=== PATIENT | female | born 1995 | race Caucasian/White ===

== ENCOUNTER 2017-11-24 16:05 | Outpatient (CLI) | payer OTHER | END 2017-11-24 19:46 | disposition home or self-care (01) | LOC: OBT 16:05 → L-D 16:06 → OBT 19:46 | DX: O62.9 Abnormality of forces of labor, unspecified (principal); Z3A.38 38 weeks gestation of pregnancy | CPT/HCPCS: Z7500 ==

== ENCOUNTER 2017-11-28 17:55 | Inpatient (IN) | payer OTHER ==
[2017-11-28] MEDS ORDERED: LACTATED RINGER'S 1,000 ML IV (20:58)
[2017-11-28] MEDS ORDERED: BUTORPHANOL 2 MG INJ IV (21:00)
[2017-11-28] MEDS ORDERED: CARBOPROST 250 MCG INJ IM (21:00)
[2017-11-28] MEDS ORDERED: LIDOCAINE 1% (MPF) 30 ML INJ INJ (21:00)
[2017-11-28] MEDS ORDERED: MISOPROSTOL 200 MCG TAB PR (21:00)
[2017-11-28] MEDS ORDERED: OXYTOCIN 30 UNITS/LR 500 ML IV (21:00)
[2017-11-28] MEDS ORDERED: IBUPROFEN 600 MG TAB PO (21:00)
[2017-11-28] MEDS ORDERED: METHYLERGONOVINE 0.2 MG INJ IM (21:00)
[2017-11-28] MEDS: LACTATED RINGER'S 1,000 ML IV (22:10)
[2017-11-29] LABS: ADD MAN DIFF? NO
[2017-11-29 00:02] LABS: ABNORMAL IP MESSAGE 1; BASOPHILS % 0.3 % (0.0-2.0); EOSINOPHILS # 0.1 10^3/ul (0.0-0.5); EOSINOPHILS % 0.8 % (0.0-7.0); HEMOGLOBIN 9.6 g/dl (12.0-16.0); LYMPHOCYTES # 1.9 10^3/ul (0.8-2.9); LYMPHOCYTES % 18.9 % (15.0-51.0); MEAN CORPUSCULAR HEMOGLOBIN 22.4 pg (29.0-33.0); MEAN CORPUSCULAR VOLUME 72.4 fl (82.0-101.0); MEAN PLATELET VOLUME 11.6 fl (7.4-10.4); MONOCYTE # 0.7 10^3/ul (0.3-0.9); MONOCYTES % 6.5 % (0.0-11.0); NEUTROPHIL # 7.5 10^3/ul (1.6-7.5); NEUTROPHILS % 73.1 % (39.0-77.0); PLATELET COUNT 250 10^3/UL (140-415); RED BLOOD COUNT 4.28 10^6/ul (4.20-5.40); RED CELL DISTRIBUTION WIDTH 17.9 % (11.5-14.5)
[2017-11-29 00:02] LABS: WHITE BLOOD COUNT 10.2 10^3/ul (4.8-10.8)
[2017-11-29 00:06] LABS: POSITIVE DIFF @See below
[2017-11-29 00:18] LABS: INR 0.99; PROTIME 13.2 Sec (11.9-14.9)
[2017-11-29 00:19] LABS: PARTIAL THROMBOPLASTIN TIME 27.9 Sec (25.0-35.0)
[2017-11-29 00:52] LABS: HEPATITIS B SURFACE ANTIGEN NEGATIVE (NEGATIVE)
[2017-11-29] MEDS: LACTATED RINGER'S 1,000 ML IV ×2 (06:26→17:44)
[2017-11-29 16:21] LABS: RAPID PLASMA REAGIN NONREACTIVE (NR)
[2017-11-30] MEDS: LACTATED RINGER'S 1,000 ML IV ×2 (02:01→08:27)
[2017-11-30] MEDS ORDERED: FENTAnyl 2MCG/ML-ROPIV 0.2% 100 ML (07:50)
[2017-11-30] MEDS ORDERED: NALOXONE (0.4 MG/ML) INJ IV (09:30)
[2017-11-30] MEDS ORDERED: ONDANSETRON 4 MG INJ IV (09:30)
[2017-11-30] MEDS ORDERED: TRIMETHOBENZAMIDE 100 MG/ML VIAL IM (09:30)
[2017-11-30] MEDS ORDERED: DIPHENHYDRAMINE 50 MG INJ IV (09:30)
[2017-11-30] MEDS ORDERED: FENTAnyl 2MCG/ML-ROPIV 0.2% 100 ML BAG EPI (09:30)
[2017-11-30] MEDS: OXYTOCIN 30 UNITS/LR 500 ML IV ×2 (12:26→12:30)
[2017-11-30] MEDS: LACTATED RINGER'S 1,000 ML IV* ×2 (15:20→23:20)
[2017-11-30] MEDS ORDERED: OXYTOCIN 30 UNITS/LR 500 ML IV (15:30)
[2017-11-30] MEDS ORDERED: MISOPROSTOL 200 MCG TAB PR (15:30)
[2017-11-30] MEDS ORDERED: CARBOPROST 250 MCG INJ IM (15:30)
[2017-11-30] MEDS ORDERED: METHYLERGONOVINE 0.2 MG INJ IM (15:30)
[2017-11-30] MEDS ORDERED: DIBUCAINE 1% 30 GM OINT PR (15:30)
[2017-11-30] MEDS ORDERED: HYDROCODONE/APAP (5/325) TAB PO (15:30)
[2017-11-30] MEDS ORDERED: ACETAMINOPHEN 325 MG TAB PO (15:30)
[2017-11-30] MEDS: IBUPROFEN 600 MG TAB PO ×2 (17:50→23:29)
[2017-11-30] MEDS: LANOLIN 7 GM TUBE TOP (17:50)
[2017-11-30] MEDS: BENZOCAINE 20% 56 ML SPRAY TOP (17:51)
[2017-11-30] MEDS: WITCH HAZEL/GLYCERIN PAD PR (17:51)
[2017-11-30] MEDS: SENNA/DOCUSATE NA (8.6MG/50MG) TAB PO (21:26)
[2017-12-01] MEDS: IBUPROFEN 600 MG TAB PO ×4 (05:41→23:24)
[2017-12-01] MEDS: LACTATED RINGER'S 1,000 ML IV* ×2 (06:26→19:19)
[2017-12-01] MEDS: SENNA/DOCUSATE NA (8.6MG/50MG) TAB PO ×2 (10:14→21:34)
[2017-12-01 10:19] LABS: ADD MAN DIFF? NO
[2017-12-01 10:26] LABS: WHITE BLOOD COUNT 9.9 10^3/ul (4.8-10.8)
[2017-12-01 10:26] LABS: BASOPHILS % 0.3 % (0.0-2.0); EOSINOPHILS # 0.1 10^3/ul (0.0-0.5); EOSINOPHILS % 0.8 % (0.0-7.0); HEMATOCRIT 29.3 % (37.0-47.0); HEMOGLOBIN 8.9 g/dl (12.0-16.0); LYMPHOCYTES # 1.4 10^3/ul (0.8-2.9); LYMPHOCYTES % 13.9 % (15.0-51.0); MEAN CORPUSCULAR HEMOGLOBIN 22.3 pg (29.0-33.0); MEAN CORPUSCULAR HGB CONC 30.4 g/dl (32.0-37.0); MEAN CORPUSCULAR VOLUME 73.4 fl (82.0-101.0); MEAN PLATELET VOLUME 10.7 fl (7.4-10.4); MONOCYTE # 0.4 10^3/ul (0.3-0.9); MONOCYTES % 3.7 % (0.0-11.0); NEUTROPHILS % 80.7 % (39.0-77.0); PLATELET COUNT 189 10^3/UL (140-415); RED BLOOD COUNT 3.99 10^6/ul (4.20-5.40); RED CELL DISTRIBUTION WIDTH 18.6 % (11.5-14.5)
[2017-12-02] MEDS: LACTATED RINGER'S 1,000 ML IV* ×2 (00:37→05:44)
[2017-12-02] MEDS: IBUPROFEN 600 MG TAB PO ×2 (05:36→12:00)
[2017-12-02] MEDS: DIPHTH/TET/ACEL PERTUSS (ADULT) 0.5 ML VIAL IM* (09:26)
[2017-12-02] MEDS: SENNA/DOCUSATE NA (8.6MG/50MG) TAB PO (09:26)
== END 2017-12-02 14:41 | disposition home or self-care (01) | DRG 775 ==
LOC: OBT 17:55 → PP1 11-30 14:00 → L-D 17:56 → PP1 11-30 17:03 → OBT 21:00 → L-D 21:00
PROVIDERS: Obstetrics & Gynecology
PROC: 10E0XZZ Delivery of Products of Conception, External Approach (ICD-10-PCS; principal; 2017-11-30)
DX: O80 Encounter for full-term uncomplicated delivery (principal); Z37.0 Single live birth; Z3A.38 38 weeks gestation of pregnancy
CPT/HCPCS: 62319; 85025; 85610; 85730; 86592; 86900; 86901; 87340; 90715